=== PATIENT | female | born 1940 | race Caucasian/White ===

== ENCOUNTER 2021-03-10 17:11 | Emergency (ER) | payer MEDICARE, OTHER ==
--- NOTE | 2021-03-10 18:16 | ED ---
General Adult HPI - General Stated complaint: fall Time Seen by Provider: 03/10/21 18:14 - History of Present Illness Initial comments: 80 year-old female patient presents for evaluation of left groin pain and inability to ambulate after a fall today. She was carrying wood into the house when she stumbled because her foot wouldn't move and fell. She landed on the left hip. She is reporting pain to the left groin when she stands. No pain at rest. Denies radiating pain. Denies numbness or tingling to the lower extremities. She denies hitting her head or losing consciousness. Does not take blood thinners. - Related Data Home Medications Medication Instructions Recorded Confirmed metFORMIN HCL [Glucophage] 1,000 mg PO BID 12/11/13 01/06/17 Fexofenadine/Pseudoephedrine 1 tab PO DAILY 01/06/17 01/06/17 [Bettina-D 24 Hour Tablet] Montelukast [Singulair] 10 mg PO HS 01/06/17 01/06/17 Multivitamins, Thera [Multivitamin 1 tab PO DAILY 01/06/17 01/06/17 (formulary)] Previous Rx's Medication Instructions Recorded Ibuprofen [Motrin] 600 mg PO Q8HR PRN #30 tab 03/10/21 Allergies Allergy/AdvReac Type Severity Reaction Status Date / Time No Known Allergies Allergy Verified 01/06/17 11:25 Review of Systems ROS Statement: Those systems with pertinent positive or pertinent negative responses have been documented in the HPI. ROS Other: All systems not noted in ROS Statement are negative. Past Medical History Past Medical History: Diabetes Mellitus History of Any Multi-Drug Resistant Organisms: None Reported Past Surgical History: Cholecystectomy, Hysterectomy Past Psychological History: No Psychological Hx Reported Past Alcohol Use History: Daily Past Drug Use History: None Reported General Exam General appearance: alert, in no apparent distress, other (This is a well- developed, well-nourished elderly female patient in no acute distress.) Head exam: Present: atraumatic, normocephalic, normal inspection ENT exam: Present: normal exam, normal oropharynx, mucous membranes moist Neck exam: Present: normal inspection, full ROM, other (Nontender, no step-off, no deformity to firm midline palpation of the posterior cervical spine. Full range of motion without pain or limitation.). Absent: tenderness, meningismus, lymphadenopathy Respiratory exam: Present: normal lung sounds bilaterally. Absent: respiratory distress, wheezes, rales, rhonchi, stridor Cardiovascular Exam: Present: regular rate, normal rhythm, normal heart sounds. Absent: systolic murmur, diastolic murmur, rubs, gallop, clicks Extremities exam: Present: full ROM, tenderness (Left Lateral hip), normal capillary refill, other (Ecchymosis over the left lateral hip. No shortening or rotation noted to the left leg. Skin to the left leg is pink, warm, dry. Cap refill less than 3 seconds. Pedal and posttibial pulses 2+.). Absent: normal inspection, pedal edema, joint swelling, calf tenderness Back exam: Present: normal inspection. Absent: vertebral tenderness Neurological exam: Present: alert, oriented X3, CN II-XII intact Psychiatric exam: Present: normal affect, normal mood Skin exam: Present: warm, dry, intact, normal color. Absent: rash Course Vital Signs 03/10/21 03/10/21 18:10 21:06 Temperature 97.4 F L 97.8 F Pulse Rate 81 76 Respiratory 18 18 Rate Blood Pressure 173/87 162/67 O2 Sat by Pulse 97 Oximetry Medical Decision Making - Medical Decision Making 80-year-old female patient presents to the emergency department today for evaluation of left groin pain after a fall. Physical examination did reveal ecchymosis noted to the left lateral hip tenderness over the area. There is no shortening or rotation noted. Initially x-ray of the left hip and pelvis were negative. Computed tomography scan of the pelvis was obtained and showed no acute fractures. I did discuss findings and results with the patient. She is given pain medication. Due to difficulty ambulating she was offered admission but declined stating she wanted to be discharged home. She'll be discharged home with pain medication. Instructed to follow-up the primary care physician or warhead maintenance specialist if her symptoms are not improved. Return parameters were discussed in detail. She verbalizes understanding and agrees with this plan. My attending is Dr. Jean. - Radiology Data Radiology results: report reviewed, image reviewed 3 views of the left hip and pelvis are obtained. Report was reviewed in its entirety. Impression by Dr. Recinos shows no acute abnormality of the pelvis and left hip. No adverse change compared to old exam. CT pelvis without contrast was obtained. Report was reviewed in its entirety. Impression by Dr. 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 Old healed fractures noted of the left and right if she him. No acute fracture seen. Mild subcutaneous bruising over the lateral aspect of the left hip. Disposition Clinical Impression: Strain of left groin Disposition: HOME SELF-CARE Condition: Good Instructions (If sedation given, give patient instructions): Groin Strain (ED) Additional Instructions: Take medications as directed. Follow-up with orthopedics if her symptoms are not improved after 1 week. Return to the emergency department for any new, worsening, or concerning symptoms. Prescriptions: Ibuprofen [Motrin] 600 mg PO Q8HR PRN #30 tab PRN Reason: Pain Is patient prescribed a controlled substance at d/c from ED?: No Referrals: Malaika Schwartz MD [Primary Care Provider] - 1-2 days Brenton Burns MD [Medical Doctor] - 1-2 days Time of Disposition: 20:23
[2021-03-10 18:17] VITALS: RESP 18
--- NOTE | 2021-03-10 18:38 | XR ---
EXAMINATION TYPE: XR Hip LT and AP Pelvis DATE OF EXAM: 03/10/2021 COMPARISON: 12/11/2013 HISTORY: Fall. Pain. TECHNIQUE: 3 views FINDINGS: The pelvic ring appears intact. There is vascular calcification. The proximal left femur an d hip joint appear intact. Sacroiliac joints are intact. There is slight narrowing of the hip joint s paces. IMPRESSION: No acute abnormality of the pelvis and left hip. No adverse change compared to old exam.
--- NOTE | 2021-03-10 19:54 | CT ---
EXAMINATION TYPE: CT pelvis wo con DATE OF EXAM: 03/10/2021 COMPARISON: 12/11/2013 HISTORY: pain from fall CT DLP: 470.8 mGycm Automated exposure control for dose reduction was used. Images obtained from the top of the kidneys to the floor the pelvis without contrast. There is no free fluid in the abdomen and pelvis. There are sigmoid diverticula. There is no sign of diverticulitis. There is no evidence of free air. There is no sign of a pelvic mass. Bladder distends smoothly.There is some deformity right ischium related to old healed fracture. There is similar mini mal deformity left inferior pubic ramus. The acetabula appear intact. Proximal left femur and hip ghazala nt appear intact. There is acetabular spurring. There is mild spurring on the left femoral head. Ther e is no evidence of a hip fracture. The sacroiliac joints are intact. There is mild subcutaneous dens ity over the lateral aspect of the greater trochanter of the left femur. 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 Old healed fractures noted of the left and right ischium. No acute fracture seen. Mild subcutaneous bruising over the lateral aspect o f the left hip.
[2021-03-10] MEDS ORDERED: ACET/COD 300 MG/30 MG STARTER PACK 6 TAB BTL PO STA (20:10)
[2021-03-10] MEDS ORDERED: KETOROLAC 15 MG/ML 1 ML VIAL IM STA (20:17)
[2021-03-10 21:08] VITALS: BP 162/67; PULSE 76; TEMP 97.8
== END 2021-03-10 21:06 | disposition home or self-care (01) ==
LOC: EC 17:11
DX: S39.011A Strain of muscle, fascia and tendon of abdomen, initial encounter (principal); E11.9 Type 2 diabetes mellitus without complications; Z79.84 Long term (current) use of oral hypoglycemic drugs; Z90.49 Acquired absence of other specified parts of digestive tract; Z90.710 Acquired absence of both cervix and uterus; W01.0XXA Fall on same level from slipping, tripping and stumbling without subsequent striking against object, initial encounter
CPT/HCPCS: 99284; 96372; 73502; 72192; J1885